=== PATIENT | female | born 1995 | race Caucasian/White ===

== ENCOUNTER 2016-12-06 14:58 | Emergency (ER) | payer MEDICAID ==
[2016-12-06 15:09] VITALS: BP 124/97
--- NOTE | 2016-12-06 15:17 | EDM.PDOC ---
ED HPI GENERAL MEDICAL PROBLEM - General Chief Complaint: ENT Problem Stated Complaint: TEETH Time Seen by Provider: 12/06/16 15:05 Source of Information: Reports: Patient, RN, RN Notes Reviewed History Limitations: Reports: No Limitations - History of Present Illness INITIAL COMMENTS - FREE TEXT/NARRATIVE: Patient presents to the ED at [facility] complaining of dental pain that started a couple weeks ago. Patient states she was seen at [facility] in [place] two weeks ago and diagnosed tooth root decay. Patient states she was placed on antibiotics and sent home. She states she is currently still taking the antibiotics. She states she did not go back to the dentist to have her teeth taken care of. Patient complains of lower right tooth pain and upper left lateral tooth pain. Onset: Gradual - Related Data Allergies Allergy/AdvReac Type Severity Reaction Status Date / Time No Known Allergies Allergy Verified 12/06/16 15:11 Home Meds: Home Meds . [No Known Home Meds] 12/06/16 [History] Past Medical History - Past Health History Medical/Surgical History: Denies Medical/Surgical History Social & Family History - Family History Family Medical History: Noncontributory - Tobacco Use Smoking Status *Q: Former Smoker Years of Tobacco use: 4 Packs/Tins Daily: 0.2 Used Tobacco, but Quit: No Month Tobacco Last Used: Jul - Recreational Drug Use Recreational Drug Use: No ED ROS GENERAL - Review of Systems Review Of Systems: See Below Constitutional: Denies: Fever, Chills, Weakness HEENT: Reports: Dental Pain Respiratory: Denies: Shortness of Breath, Cough Cardiovascular: Denies: Chest Pain, Palpitations Skin: Reports: No Symptoms Neurological: Reports: No Symptoms ED EXAM, GENERAL - Physical Exam Exam: See Below Exam Limited By: No Limitations General Appearance: Alert, No Apparent Distress Throat/Mouth: Normal Gums, Other (Tooth #5 and #32 show obvious decay; no evidence of dental abscess; moderate gingivitis) Respiratory/Chest: No Respiratory Distress, Lungs Clear, Normal Breath Sounds Cardiovascular: Regular Rate, Rhythm Neurological: Alert, Oriented Skin Exam: Warm, Dry, Intact, Normal Color, No Rash ED GENERAL MEDICAL PROCEDURES - Additional/Other Procedure(s) Other (Free Text) Procedure(s): Dental block perform on tooth #32 and #5. Areas injected with 3cc 1% Lidocaine with 2cc 0.5% Marcaine. Patient tolerated procedure well. No complications. Course - Vital Signs Last Recorded V/S: Last Vital Signs Temp 36.6 C 12/06/16 15:05 Pulse 96 12/06/16 15:05 Resp 18 12/06/16 15:05 BP 124/97 H 12/06/16 15:05 Pulse Ox 99 12/06/16 15:05 - Orders/Labs/Meds Orders: Active Orders 24 hr Category Date Time Status Bupivacaine 0.5% [Marcaine 0.5%] Med 12/06/16 15:21 Active 30 ml INJECT ASDIRECTED PRN Medication Orders Bupivacaine HCl (Marcaine 0.5%) 30 ml INJECT ASDIRECTED PRN PRN Reason: Other Meds: Medications Generic Name Dose Route Start Last Admin Trade Name Freq PRN Reason Stop Dose Admin Bupivacaine HCl 30 ml 12/06/16 15:21 Marcaine 0.5% INJECT ASDIRECTED PRN Other Discontinued Medications Generic Name Dose Route Start Last Admin Trade Name Freq PRN Reason Stop Dose Admin Lidocaine HCl 30 ml 12/06/16 15:21 Xylocaine-Mpf 1% INJECT 12/06/16 15:22 ONETIME ONE Departure - Departure Time of Disposition: 15:55 Disposition: Home, Self-Care 01 Condition: Good Clinical Impression: Pain, dental, Dental caries - Discharge Information Referrals: Radha Eubanks TRAFFIC RATE ANALYST [Primary Care Provider] - Forms: ED Department Discharge Additional Instructions: 1. Stay well hydrated and rest 2. Use oral antiseptic mouth 3. Warm salt water gargles 4. See your primary or walk in clinic if pain persist 5. Make appointment to see your dentist for complete therapy - Problem List Review Problem List Initiated/Reviewed/Updated: Yes - My Orders Last 24 Hours: My Active Orders 12/06/16 15:21 Bupivacaine 0.5% [Marcaine 0.5%] 30 ml INJECT ASDIRECTED PRN - Assessment/Plan Last 24 Hours: My Active Orders 12/06/16 15:21 Bupivacaine 0.5% [Marcaine 0.5%] 30 ml INJECT ASDIRECTED PRN Plan: Attempted to call [facility], no answer.
[2016-12-06] MEDS ORDERED: Lidocaine 1% 30 ML SDV INJECT ONE (15:21)
[2016-12-06] MEDS ORDERED: Bupivacaine 0.5% 30 ML SDV INJECT PRN (15:21)
== END 2016-12-06 16:03 | disposition home or self-care (01) ==
LOC: VM.ED 14:58
DX: K02.9 Dental caries, unspecified (principal); Z87.891 Personal history of nicotine dependence
CPT/HCPCS: 64400; 99282; 99282-GF-25

== ENCOUNTER 2016-12-07 06:54 | Emergency (ER) | payer MEDICAID ==
[2016-12-07 06:57] VITALS: BP 110/73
[2016-12-07] MEDS ORDERED: Ketorolac 30 MG/ML SDV IM ONE (07:22)
[2016-12-07] MEDS ORDERED: Bupivacaine 0.25% 30 ML SDV INJECT PRN (07:22)
--- NOTE | 2016-12-07 07:28 | EDM.PDOC ---
ED HPI GENERAL MEDICAL PROBLEM - General Chief Complaint: ENT Problem Stated Complaint: dental pain Time Seen by Provider: 12/07/16 07:08 Source of Information: Reports: Patient History Limitations: Reports: No Limitations - History of Present Illness INITIAL COMMENTS - FREE TEXT/NARRATIVE: Patient presents to the ED this morning with complaints of right sided upper and lower tooth pain. She was seen yesterday here and given a digital block which she claims did not work. She was also given a prescription for tylenol with codeine by her primary provider. She has no additional complaints. States she took 2 codeine tablets this AM. She told the RN that she had taken 3. Rates pain a 10/10 but is half sleeping and slurring her words during my history taking. Seen two weeks ago at [facility] and told to follow up after her antibiotic course. Started on Clindamycin. Onset: Gradual Duration: Constant Quality: Reports: Ache Severity: Severe Improves with: Reports: None Worsens with: Reports: None Associated Symptoms: Reports: No Other Symptoms Treatments DOCK HAND: Reports: Acetaminophen, NSAIDS, Other Medication(s) Right Tooth/Teeth Pain Score (Numeric/FACES): 10 - Related Data Allergies Allergy/AdvReac Type Severity Reaction Status Date / Time No Known Allergies Allergy Verified 12/06/16 15:11 Home Meds: Home Meds . [No Known Home Meds] 12/06/16 [History] Past Medical History - Past Health History Medical/Surgical History: Denies Medical/Surgical History HEENT History: Reports: Other (See Below) Other HEENT History: dental caries Social & Family History - Family History Family Medical History: Noncontributory - Tobacco Use Smoking Status *Q: Former Smoker Years of Tobacco use: 4 Packs/Tins Daily: 0.2 Used Tobacco, but Quit: No Month Tobacco Last Used: Jul - Recreational Drug Use Recreational Drug Use: No ED ROS ENT - Review of Systems Review Of Systems: ROS reveals no pertinent complaints other than HPI. ED EXAM, ENT - Physical Exam Exam: See Below Exam Limited By: No Limitations General Appearance: WD/WN, No Apparent Distress, Lethargic Eye Exam: Bilateral Eye: EOMI, PERRL Mouth/Throat: Dental Pain, Other (dental caries) Head: Atraumatic, Normocephalic Neurological: Oriented, CN II-XII Intact, Normal Cognition, Slow to Respond Psychiatric: Normal Mood, Flat Affect Skin: Warm, Dry, Intact Lymphatic: No Adenopathy Course - Vital Signs Last Recorded V/S: Last Vital Signs Temp 35.9 C 12/07/16 06:54 Pulse 70 12/07/16 06:54 Resp 18 12/07/16 06:54 BP 110/73 12/07/16 06:54 Pulse Ox 99 12/07/16 06:54 - Orders/Labs/Meds Orders: Active Orders 24 hr Category Date Time Status Bupivacaine 0.25% [Marcaine 0.25%] Med 12/07/16 07:22 Ordered 30 ml INJECT ASDIRECTED PRN Ketorolac [Toradol] Med 12/07/16 07:22 Once 30 mg IM ONETIME ONE - Re-Assessments/Exams Free Text/Narrative Re-Assessment/Exam: 12/07/16 07:30 Patient given 30 IM toradol, digital block to posterior nerve bundle in the right lower and upper jaw, as well as buccal injection near identified pain sites of her teeth. Bupivicaine and Lidocaine. Departure - Departure Time of Disposition: 07:49 Disposition: Home, Self-Care 01 Condition: Fair Clinical Impression: Dental caries - Discharge Information Instructions: Dental Care and Dentist Visits, Dental Caries, [id number] Forms: ED Department Discharge Additional Instructions: As already instructed by Sanjay Mishra yesterday. 1. Follow up with your primary provider for chronic pain management of your dental pain. 2. Follow up with dental bridge for completion of your plan of care for your teeth 3. Continue the clindamycin. 4. Stay hydrated. 5. Take aleve or ibuprofen as well as the tylenol with codeine for pain control. You may also take tylenol, but do not exceed 4,000 mg daily as the codeine medication also has tylenol in it. 6. Use salt water gargles, as well as oral antiseptic rinse. - Problem List & Annotations (1) Dental caries SNOMED Code(s): 36905475 Code(s): K02.9 - DENTAL CARIES, UNSPECIFIED Status: Acute - Problem List Review Problem List Initiated/Reviewed/Updated: Yes - My Orders Last 24 Hours: My Active Orders 12/07/16 07:22 Bupivacaine 0.25% [Marcaine 0.25%] 30 ml INJECT ASDIRECTED PRN Ketorolac [Toradol] 30 mg IM ONETIME ONE - Assessment/Plan Last 24 Hours: My Active Orders 12/07/16 07:22 Bupivacaine 0.25% [Marcaine 0.25%] 30 ml INJECT ASDIRECTED PRN Ketorolac [Toradol] 30 mg IM ONETIME ONE Assessment:: dental caries, tooth decay Plan: As already instructed by Sanjay Mishra yesterday. 1. Follow up with your primary provider for chronic pain management of your dental pain. 2. Follow up with dental bridge for completion of your plan of care for your teeth 3. Continue the clindamycin. 4. Stay hydrated. 5. Take aleve or ibuprofen as well as the tylenol with codeine for pain control. You may also take tylenol, but do not exceed 4,000 mg daily as the codeine medication also has tylenol in it. 6. Use salt water gargles, as well as oral antiseptic rinse.
== END 2016-12-07 07:50 | disposition home or self-care (01) ==
LOC: VM.ED 06:54
DX: K02.9 Dental caries, unspecified (principal); Z87.891 Personal history of nicotine dependence
CPT/HCPCS: 64400; 96372; 99282; 99283; J1885; J3490

== ENCOUNTER 2017-03-08 11:26 | Emergency (ER) | payer MEDICAID ==
[2017-03-08] MEDS ORDERED: Tetracaine 1% 10 MG/ML 2 ML SDV ONE (11:34)
[2017-03-08] MEDS ORDERED: Tetracaine HCl/PF 0.5% 4 ML Bottle EYEBOTH ONE (11:36)
[2017-03-08 11:37] VITALS: BP 125/67
[2017-03-08] MEDS ORDERED: Fluorescein 1 MG Ophth Strip EYEBOTH ONE (11:44)
--- NOTE | 2017-03-08 12:02 | EDM.PDOC ---
ED HPI GENERAL MEDICAL PROBLEM - General Chief Complaint: Eye Problems Stated Complaint: CONTACTS STUCK IN EYES Time Seen by Provider: 03/08/17 11:33 Source of Information: Reports: Patient, RN, RN Notes Reviewed History Limitations: Reports: No Limitations - History of Present Illness INITIAL COMMENTS - FREE TEXT/NARRATIVE: Patient presents to the ED at [facility] stating her contact lenses are stuck in each eye and she is not able to manually removed them. Onset: Today Bilateral Eye Pain Score (Numeric/FACES): 7 - Related Data Allergies Allergy/AdvReac Type Severity Reaction Status Date / Time No Known Allergies Allergy Verified 03/08/17 11:37 Home Meds: Home Meds Tobramycin/Dexamethasone [Tobradex Eye Drops] 3 drop EYEBOTH TID 7 Days #1 bottle 03/08/17 [Rx] Past Medical History - Past Health History Medical/Surgical History: Denies Medical/Surgical History HEENT History: Reports: Other (See Below) Other HEENT History: dental caries Social & Family History - Family History Family Medical History: Noncontributory - Tobacco Use Smoking Status *Q: Former Smoker Years of Tobacco use: 4 Packs/Tins Daily: 0.2 Used Tobacco, but Quit: No Month Tobacco Last Used: Jul - Recreational Drug Use Recreational Drug Use: No ED ROS GENERAL - Review of Systems Review Of Systems: See Below Constitutional: Denies: Fever, Chills, Weakness HEENT: Reports: Contact Lenses (stuck in both eyes) Respiratory: Denies: Shortness of Breath, Cough Cardiovascular: Denies: Chest Pain, Palpitations Skin: Reports: No Symptoms Neurological: Reports: No Symptoms ED EXAM GENERAL W FULL EYE - Physical Exam Exam: See Below Exam Limited By: No Limitations General Appearance: Alert, No Apparent Distress Eye Exam: Bilateral Eye: EOMI, Normal Inspection, PERRL Eyelids: Bilateral: Erythema, Lid Everted for Exam (unable to visualize any FB) Conjunctiva & Sclera: Bilateral: Injected Cornea Exam: Bilateral: Examined with Flourescein (no FB seen) Extraocular Movements: Bilateral: Intact Pupils: Normal Accommodation Pupillary Size: Bilateral: 4 mm Pupillary Reaction: Bilateral: Brisk Respiratory/Chest: No Respiratory Distress, Lungs Clear, Normal Breath Sounds Cardiovascular: Normal Peripheral Pulses, Regular Rate, Rhythm Neurological: Alert, Oriented Skin Exam: Warm, Dry, Intact, Normal Color, No Rash ED EYE w/ Add Procedure - Eye Procedure Alcaine Drops Administered: Yes Eye FB Removal: Other (no FB found) Progress: Eyes numbed with Tetracaine drops; Stained used, no contact lenses or FB found in either eye Course - Vital Signs Last Recorded V/S: Last Vital Signs Temp 36.8 C 03/08/17 11:33 Pulse 119 H 03/08/17 11:33 Resp 16 03/08/17 11:33 BP 125/67 03/08/17 11:33 Pulse Ox 98 03/08/17 11:33 - Orders/Labs/Meds Meds: Medications Discontinued Medications Generic Name Dose Route Start Last Admin Trade Name Freq PRN Reason Stop Dose Admin Fluorescein Sodium 1 mg 03/08/17 11:44 03/08/17 11:47 Ful-Leila EYEBOTH 03/08/17 11:45 1 mg ONETIME ONE Administration Tetracaine 1 mg 03/08/17 11:34 03/08/17 11:45 Pontocaine 1% .XX 03/08/17 11:35 Not Given ONETIME ONE Tetracaine HCl 1 ml 03/08/17 11:36 03/08/17 11:40 Tetracaine 0.5% Steri-Unit Sanaz EYEBOTH 03/08/17 11:37 2 drop ONETIME ONE Administration Departure - Departure Time of Disposition: 12:00 Disposition: Home, Self-Care 01 Condition: Good Clinical Impression: Irritation of both eyes - Discharge Information Prescriptions: Tobramycin/Dexamethasone [Tobradex Eye Drops] 3 drop EYEBOTH TID 7 Days #1 bottle Additional Instructions: 1. Stay well hydrated and rest 2. Use eye drops as directed 3. See eye doctor this Friday if symptoms are not improving - Problem List Review Problem List Initiated/Reviewed/Updated: Yes
== END 2017-03-08 12:10 | disposition home or self-care (01) ==
LOC: VM.ED 11:26
DX: H57.9 Unspecified disorder of eye and adnexa (principal); Z87.891 Personal history of nicotine dependence
CPT/HCPCS: 99283; A9270

== ENCOUNTER 2019-08-09 14:27 | Emergency (ER) | payer BC, MEDICAID ==
[2019-08-09] MEDS: LORazepam 2 MG/ML SDV IM ONE (14:47)
[2019-08-09] MEDS: methylPREDNISolone Sodium Succinate 125 MG/2 ML SDV IM ONE (14:48)
--- NOTE | 2019-08-09 15:27 | EDM.PDOC ---
ED HPI GENERAL MEDICAL PROBLEM - General Stated Complaint: ALLERGIC REACTION Time Seen by Provider: 08/09/19 14:27 Source of Information: Reports: Patient History Limitations: Reports: No Limitations - History of Present Illness INITIAL COMMENTS - FREE TEXT/NARRATIVE: Pt. presents to ER with complaints of a possible allergic reaction. She states that after eating sardines, she began experiencing tingling to her mouth and itching to her chest/extremities. Pt. states that she also began experiencing some breathing trouble and feels this may be due to a "panic attack". She took 50mg of benadryl prior to coming to ER. She states that the sensations in her mouth have improved but states she feels extremely anxious. She complains of numbness/tightness in her hands and feet. Denies any nausea or vomiting. No chest pain. No significant rash. Onset: Today Onset Date: 08/09/19 Location: Reports: Face, Upper Extremity, Left, Upper Extremity, Right, Lower Extremity, Left, Lower Extremity, Right, Generalized Quality: Reports: Burning Severity: Moderate - Related Data Allergies Allergy/AdvReac Type Severity Reaction Status Date / Time No Known Allergies Allergy Verified 03/08/17 11:37 Home Meds: Home Meds traMADol [Ultram] 50 mg PO Q6H PRN #10 tablet 04/08/17 [Rx] Past Medical History - Past Health History Medical/Surgical History: Denies Medical/Surgical History HEENT History: Reports: Impaired Vision, Other (See Below) Other HEENT History: dental caries Respiratory History: Reports: Asthma 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 Musculoskeletal History: Reports: Fracture Neurological History: Reports: Migraines Psychiatric History: Reports: Anxiety, Depression - Past Surgical History HEENT Surgical History: Reports: Tonsillectomy Social & Family History - Family History Family Medical History: Noncontributory - Caffeine Use Caffeine Use: Reports: Coffee, Energy Drinks, Soda, Tea ED ROS GENERAL - Review of Systems Review Of Systems: See Below Constitutional: Denies: Fever, Chills, Malaise, Weakness, Fatigue, Diaphoresis, Decreased Appetite, Weight Gain HEENT: Reports: No Symptoms Respiratory: Reports: Shortness of Breath. Denies: Wheezing, Pleuritic Chest Pain, Cough, Sputum, Hemoptysis Cardiovascular: Reports: No Symptoms Endocrine: Reports: No Symptoms GI/Abdominal: Reports: No Symptoms. Denies: Abdominal Pain, Constipation, Diarrhea, Difficulty Swallowing, Nausea, Vomiting : Reports: No Symptoms Musculoskeletal: Reports: No Symptoms Skin: Reports: Pruritis Neurological: Reports: No Symptoms Psychiatric: Reports: No Symptoms Hematologic/Lymphatic: Reports: No Symptoms Immunologic: Reports: No Symptoms ED EXAM, GENERAL - Physical Exam Exam: See Below Exam Limited By: No Limitations General Appearance: Alert, WD/WN, No Apparent Distress Eye Exam: Bilateral Eye: EOMI, Normal Fundi, Normal Inspection, PERRL Nose: Normal Inspection, Normal Mucosa, No Blood Throat/Mouth: Normal Inspection, Normal Lips, Normal Teeth, Normal Gums, Normal Oropharynx, Normal Voice, No Airway Compromise Head: Atraumatic, Normocephalic Neck: Normal Inspection, Supple, Non-Tender, Full Range of Motion Respiratory/Chest: No Respiratory Distress, Lungs Clear, Normal Breath Sounds Cardiovascular: Normal Peripheral Pulses, Regular Rate, Rhythm, No Edema, No Gallop, No JVD, No Murmur, No Rub Peripheral Pulses: 4+: Radial (L) GI/Abdominal: Soft, Non-Tender, No Distention, No Mass (Female) Exam: Deferred Rectal (Female) Exam: Deferred Back Exam: Normal Inspection, Full Range of Motion Extremities: Normal Inspection, Normal Range of Motion, Non-Tender, No Pedal Edema, Normal Capillary Refill Neurological: Alert, Oriented, CN II-XII Intact, Normal Cognition, Normal Gait, No Motor/Sensory Deficits Psychiatric: Anxious, Tearful Skin Exam: Warm, Dry, Intact, No Rash, Other (no significant rash. A few small raised areas to extremities. No wheals or urticaria.) Lymphatic: No Adenopathy Course - Orders/Labs/Meds Meds: Medications Discontinued Medications Generic Name Dose Route Start Last Admin Trade Name Freq PRN Reason Stop Dose Admin Lorazepam 2 mg 08/09/19 14:38 08/09/19 14:47 Ativan IM 08/09/19 14:39 2 mg ONETIME ONE Administration Methylprednisolone Sodium Succinate 125 mg 08/09/19 14:39 08/09/19 14:48 Solu-Medrol IM 08/09/19 14:40 125 mg ONETIME ONE Administration Departure - Departure Time of Disposition: 15:33 Disposition: Home, Self-Care 01 Clinical Impression: Allergic reaction, Panic attack - Discharge Information Instructions: Panic Attack, [id number], Food Allergy, Lorazepam tablets Referrals: Ludmila Arredondo NP [Primary Care Provider] - Additional Instructions: Ativan 0.5mg 1 every 6 hours as needed for anxiety Continue with benadryl 50mg every 4-6 hours for itching Recheck in clinic in 7-10 days Return to ER if you have increased shortness of breath, throat tightness, etc. - Assessment/Plan Plan: Pt. feels that she did have a mild allergic reaction. Based on her history, this caused a panic attack, hyperventilation and carpal pedal spasms. Pt. was feeling better at time of discharge. She was started on a short course of ativan. She was given solu medrol in ER. Will hold off from starting oral prednisone-her symptoms are mild and the prednisone can cause worsening anxiety/ agitation. Recheck in clinic in 7-10 days.
[2019-08-09 16:29] VITALS: BP 148/82; PULSE 115
== END 2019-08-09 15:25 | disposition home or self-care (01) ==
LOC: VM.ED 14:27
DX: T78.1XXA Other adverse food reactions, not elsewhere classified, initial encounter (principal); R20.2 Paresthesia of skin; F41.0 Panic disorder [episodic paroxysmal anxiety]
CPT/HCPCS: 96372; 99283; J2060; J2930

== ENCOUNTER 2019-08-15 14:41 | Emergency (ER) | payer MEDICAID ==
[2019-08-15 15:20] VITALS: BP 148/96; PULSE 88
--- NOTE | 2019-08-15 15:23 | EDM.PDOC ---
ED HPI GENERAL MEDICAL PROBLEM - General Chief Complaint: Skin Complaint Stated Complaint: ALLERGIC REACTION Time Seen by Provider: 08/15/19 15:10 Source of Information: Reports: Patient History Limitations: Reports: No Limitations - History of Present Illness INITIAL COMMENTS - FREE TEXT/NARRATIVE: Patient presents to the ER with concerns of hives/swelling to her ankles and hands. Took 2 Benadryl at home about an hour ago. States felt like her throat was "closing off". No wheezing or shortness of breath. Does admit that when this occurs, she gets very anxious. She was seen on the here in ER by Ramiro Gutierrez due to same type of complaint but had a panic attack as a result. Was given ATivan and told to take Benadryl. Thought that concern was caused by Sardines. On presentation that time, no rash or hives were apparent. Does complain of a mild sore throat. No ear pain, no sinus congestion. Unaware of any fevers. Onset: Today, Sudden Duration: Minutes:, Constant Location: Reports: Generalized Severity: Mild Associated Symptoms: Denies: Confusion, Chest Pain, Cough, Fever/Chills, Loss of Appetite, Nausea/Vomiting, Shortness of Breath, Weakness Throat Pain Score (Numeric/FACES): 3 - Related Data Allergies Allergy/AdvReac Type Severity Reaction Status Date / Time No Known Allergies Allergy Verified 08/15/19 15:13 Home Meds: Home Meds . 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 Denies: Ear Pain, Sinus Problem Respiratory: Denies: Shortness of Breath, Wheezing Cardiovascular: Denies: Chest Pain, Edema, Lightheadedness Endocrine: Denies: Fatigue GI/Abdominal: Denies: Abdominal Pain, Nausea, Vomiting : Reports: No Symptoms Musculoskeletal: Reports: No Symptoms Skin: Reports: Urticaria Psychiatric: Reports: Anxiety ED EXAM GENERAL NO PERIP PULSE - Physical Exam Exam: See Below Exam Limited By: No Limitations General Appearance: Alert, WD/WN, No Apparent Distress Ears: Normal External Exam, Normal TMs Nose: Normal Inspection, Normal Mucosa, No Blood Throat/Mouth: Normal Inspection, Other (erythema to posterior pharynx, no swelling noted) Head: Normocephalic Neck: Normal Inspection, Supple, Non-Tender Respiratory/Chest: No Respiratory Distress, Lungs Clear, Normal Breath Sounds Cardiovascular: Regular Rate, Rhythm GI/Abdominal: Normal Bowel Sounds, Soft, Non-Tender Extremities: Normal Inspection, No Pedal Edema Neurological: Alert, Oriented Skin Exam: Warm, Dry, Other (no rash, hives noted. Does have dry scabs noted throughout.) Course - Vital Signs Last Recorded V/S: Last Vital Signs Temp 99.9 F 08/15/19 14:50 Pulse 88 08/15/19 14:50 Resp 16 08/15/19 14:50 BP 148/96 H 08/15/19 14:50 Pulse Ox 99 08/15/19 14:50 - Orders/Labs/Meds Orders: Active Orders 24 hr Category Date Time Status CULTURE STREP A CONFIRMATION [RM] Stat Lab 08/15/19 15:05 Received Labs: Laboratory Tests 08/15/19 Range/Units 15:05 POC Group A Strep Rpd Negative (NEGATIVE) - Re-Assessments/Exams Free Text/Narrative Re-Assessment/Exam: 08/15/19 15:44 strep screen negative Departure - Departure Time of Disposition: 15:44 Disposition: Home, Self-Care 01 Condition: Good Clinical Impression: Sore throat (viral) - Discharge Information *PRESCRIPTION DRUG MONITORING PROGRAM REVIEWED*: No *COPY OF PRESCRIPTION DRUG MONITORING REPORT IN PATIENT EDMUND: No Referrals: Ludmila Arredondo NP [Primary Care Provider] - Forms: ED Department Discharge Additional Instructions: 1. Push fluids 2. Rest 3. Alternate tylenol with ibuprofen for any discomfort 4. Benadryl 50 every 6 hours as needed for itching/hives 5. Call Ludmila's office in the morning for appointment to discuss recurring hives Sepsis Event Note - Focused Exam Vital Signs: Vital Signs Temp Pulse Resp BP Pulse Ox 08/15/19 14:50 99.9 F 88 16 148/96 H 99 Date Exam was Performed: 08/15/19 Time Exam was Performed: 15:44 - My Orders Last 24 Hours: My Active Orders 08/15/19 15:05 CULTURE STREP A CONFIRMATION [RM] Stat - Assessment/Plan Last 24 Hours: My Active Orders 08/15/19 15:05 CULTURE STREP A CONFIRMATION [RM] Stat
== END 2019-08-15 16:07 | disposition home or self-care (01) ==
LOC: VM.ED 14:41
DX: J02.8 Acute pharyngitis due to other specified organisms (principal); B97.89 Other viral agents as the cause of diseases classified elsewhere
CPT/HCPCS: 87081; 87880-QW; 99283

== ENCOUNTER 2019-08-17 04:02 | Emergency (ER) | payer MEDICAID ==
[2019-08-17] MEDS ORDERED: Ketorolac 30 MG/ML SDV IM ONE (04:28)
--- NOTE | 2019-08-17 04:36 | EDM.PDOC ---
ED HPI GENERAL MEDICAL PROBLEM - General Chief Complaint: ENT Problem Stated Complaint: Sore Throat Time Seen by Provider: 08/17/19 04:22 Source of Information: Reports: Patient History Limitations: Reports: No Limitations - History of Present Illness INITIAL COMMENTS - FREE TEXT/NARRATIVE: Pt. presents to ER with complaints of continued concerns of allergic reaction. She was seen in ER on 08/09 and 08/15 with sore throat, concerns that her "throat was closing off, and "hives' to her upper and lower extremities. Initially she states that the symptoms started abruptly after eating sardines. She was not experiencing any stridor, hives on wheezing but was experiencing carpal pedal spasms secondary to hyperventilation on arrival. She was given benadryl and was also given a dose of ativan which helped with the symptoms. She was seen in the ER again by Sabrina Rush PA-C on 08/15. At that time, she was having continued throat tightness/pharyngitis. Strep screen was negative. She was advised to follow-up in clinic, as the patient was not experiencing what appeared to be an acute allergic reaction. Pt. presents to ER this morning with worsening throat tightness, pharyngitis, widespread pruritus to extremities and torso. She states that it is worse since approx. 7 PM tonight. She states that she is experiencing hives to her hands. Denies any chest pain or shortness of breath. She complains of nausea, but no vomiting. Denies any fever or chills. Pt. states that she has never been diagnosed with food allergies and has never seen an kiln furniture caster. Onset: Today Location: Reports: Neck, Generalized Quality: Reports: Burning - Related Data Allergies Allergy/AdvReac Type Severity Reaction Status Date / Time No Known Allergies Allergy Verified 08/17/19 04:23 Home Meds: Home Meds . 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 Musculoskeletal History: Reports: Fracture Neurological History: Reports: Migraines Psychiatric History: Reports: Anxiety, Depression - Past Surgical History HEENT Surgical History: Reports: Tonsillectomy Social & Family History - Family History Family Medical History: Noncontributory - Caffeine Use Caffeine Use: Reports: Coffee, Energy Drinks, Soda, Tea ED ROS GENERAL - Review of Systems Review Of Systems: See Below Constitutional: Reports: No Symptoms HEENT: Reports: Throat Pain, Throat Swelling Respiratory: Reports: No Symptoms Cardiovascular: Reports: No Symptoms Endocrine: Reports: No Symptoms GI/Abdominal: Reports: Nausea. Denies: Abdominal Pain, Black Stool, Bloody Stool, Vomiting : Reports: No Symptoms Musculoskeletal: Reports: No Symptoms Skin: Reports: Pruritis, Other (Feels like she has hives but doesn't currently have any urticaria.) Neurological: Reports: No Symptoms Psychiatric: Reports: No Symptoms Hematologic/Lymphatic: Reports: No Symptoms Immunologic: Reports: Food Allergy ED EXAM, GENERAL - Physical Exam Exam: See Below Exam Limited By: No Limitations General Appearance: Alert, WD/WN, No Apparent Distress Eye Exam: Bilateral Eye: EOMI, Normal Fundi, Normal Inspection, PERRL Nose: Normal Inspection, Normal Mucosa, No Blood Throat/Mouth: Normal Inspection, Normal Lips, Normal Oropharynx, Normal Voice, No Airway Compromise Head: Atraumatic, Normocephalic Neck: Normal Inspection, Supple, Non-Tender, Full Range of Motion, Other ( anterior and posterior cervical tenderness but no active swelling to the area.) Respiratory/Chest: No Respiratory Distress, Lungs Clear, Normal Breath Sounds, No Accessory Muscle Use, Chest Non-Tender Cardiovascular: Normal Peripheral Pulses, Regular Rate, Rhythm, No Edema, No Gallop, No JVD, No Murmur, No Rub Peripheral Pulses: 4+: Radial (R) GI/Abdominal: Normal Bowel Sounds, Soft, Non-Tender, No Organomegaly, No Distention, No Abnormal Bruit, No Mass, Pelvis Stable (Female) Exam: Deferred Rectal (Female) Exam: Deferred Back Exam: Normal Inspection, Full Range of Motion Extremities: Normal Inspection, Normal Range of Motion, Non-Tender, No Pedal Edema, Normal Capillary Refill Neurological: Alert, Oriented, CN II-XII Intact, Normal Cognition, Normal Gait, Normal Reflexes, No Motor/Sensory Deficits Psychiatric: Normal Affect, Anxious Skin Exam: Warm, Dry, Intact, Pallor Lymphatic: No Adenopathy Course - Orders/Labs/Meds Meds: Medications Discontinued Medications Generic Name Dose Route Start Last Admin Trade Name Ellen PRN Reason Stop Dose Admin Ketorolac Tromethamine 30 mg 08/17/19 04:28 08/17/19 04:31 Toradol IM 08/17/19 04:29 30 mg ONETIME ONE Administration Departure - Departure Time of Disposition: 04:50 Disposition: Home, Self-Care 01 Clinical Impression: Pharyngitis - Discharge Information Instructions: Pharyngitis, [id number] Referrals: Ludmila Arredondo WARD SUPERVISOR [Primary Care Provider] - Forms: ED Department Discharge Additional Instructions: Ibuprofen 200mg 3 tabs every 6 hours as needed for continued discomfort, starting at 10 AM tomorrow since you were given an injection today. Please follow-up in clinic tomorrow for lab work. It doesn't appear that you are having a severe allergic reaction at this point, but you can take benadryl as needed for itching. Sepsis Event Note - Focused Exam Date Exam was Performed: 08/17/19 Time Exam was Performed: 04:37 - Problem List Review Problem List Initiated/Reviewed/Updated: Yes - Assessment/Plan Plan: Pt. refused any blood draws tonight, stating that she is scared of needles. She requests something for the pharyngitis/neck discomfort. Pt. was given toradol 30mg IM. She was strongly advised to follow-up in clinic tomorrow for further workup. She states that she needs her significant other with her for support for any bloodwork due to severe phobia of needles. Advised to return to ER if she has any shortness of breath, chest pain, or if she decides she want labs done. There was no urticaria, but she can use benadryl for itching as needed. All questions were answered.
[2019-08-17 04:44] VITALS: BP 136/95; PULSE 96
== END 2019-08-17 04:40 | disposition home or self-care (01) ==
LOC: VM.ED 04:02
DX: J02.9 Acute pharyngitis, unspecified (principal)
CPT/HCPCS: 96372; 99282; J1885

== ENCOUNTER 2019-08-17 17:21 | Emergency (ER) | payer MEDICAID ==
[2019-08-17 17:39] VITALS: BP 157/93; PULSE 102
--- NOTE | 2019-08-17 18:04 | EDM.PDOC ---
ED HPI GENERAL MEDICAL PROBLEM - General Chief Complaint: Allergic Reaction Time Seen by Provider: 08/17/19 17:35 Source of Information: Reports: Patient - History of Present Illness INITIAL COMMENTS - FREE TEXT/NARRATIVE: Pt. presents to ER with complaints of allergic reaction. She was in the ER last night with the same complaint, and has been in the ER a total of 4 times in the past week with similar symptoms. Pt. last night refused any blood draw, stating that she was afraid of needles and wanting someone to be with her for the blood draw. Pt. stated that she had an appointment today at the clinic, but she states that it is for tomorrow. When asked why she didn't try to change the appointment to today, she stated because she was tired. When she was seen last night, she stated that she wanted something for her throat discomfort. Pt. did allow us to give her an injection of toradol for discomfort. It did not appear that she was having any sort of allergic reaction. Pt. presenting complaint today is that of itching skin, perceived presence of urticaria, throat tightness, difficulty breathing, and numbness in the extremities. She denies any fever or chills. She complains of generalized discomfort and states that she feels anxious. Denies any ear pain or fullness. She does complain of mild nausea. She denies any drug use. Denies any diarrhea. Again, she has refused any workup including lab studies at this point. 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 Neck Pain Score (Numeric/FACES): 8 Right Elbow Pain Score (Numeric/FACES): 8 - Related Data Allergies Allergy/AdvReac Type Severity Reaction Status Date / Time No Known Allergies Allergy Verified 08/17/19 17:30 Home Meds: Home Meds diphenhydrAMINE [Benadryl] 25 mg PO Q6H PRN 08/17/19 [History] Past Medical History - Past Health History Medical/Surgical History: Denies Medical/Surgical History HEENT History: Reports: Impaired Vision, Other (See Below) Other HEENT History: dental caries Respiratory History: Reports: Asthma 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 Denies: Fever, Chills, Malaise, Diaphoresis, Weight Loss HEENT: Reports: Throat Pain, Throat Swelling (sensation of throat swelling) Respiratory: Reports: Shortness of Breath. Denies: Wheezing, Cough Cardiovascular: Reports: No Symptoms Endocrine: Reports: No Symptoms GI/Abdominal: Reports: No Symptoms : Reports: No Symptoms Musculoskeletal: Reports: No Symptoms Skin: Reports: No Symptoms Neurological: Reports: No Symptoms Psychiatric: Reports: No Symptoms Hematologic/Lymphatic: Reports: No Symptoms Immunologic: Reports: No Symptoms ED EXAM GENERAL NO PERIP PULSE - Physical Exam Exam: See Below Exam Limited By: No Limitations General Appearance: Alert, WD/WN, No Apparent Distress Eye Exam: Bilateral Eye: EOMI, Normal Fundi, Normal Inspection, PERRL Ears: Normal External Exam, Normal Canal, Hearing Grossly Normal, Normal TMs Nose: Normal Inspection, Normal Mucosa, No Blood. No: Nasal Tenderness, Nasal Swelling, Nasal Drainage, Nasal Flaring Throat/Mouth: Normal Inspection, Normal Lips, Normal Teeth, Normal Gums, Normal Oropharynx, Normal Voice, No Airway Compromise Head: Atraumatic, Normocephalic Neck: Normal Inspection, Supple, Non-Tender, Full Range of Motion. No: Lymphadenopathy (L), Lymphadenopathy (R) Respiratory/Chest: Lungs Clear, Normal Breath Sounds, No Accessory Muscle Use, Chest Non-Tender. No: Crackles, Rales, Rhonchi, Wheezing, Stridor, Pleural Rub , Retractions Cardiovascular: Normal Peripheral Pulses, Regular Rate, Rhythm, No Edema, No Gallop, No JVD, No Murmur, No Rub GI/Abdominal: Normal Bowel Sounds, Soft, Non-Tender, No Organomegaly, No Distention, No Abnormal Bruit, No Mass, Pelvis Stable (Female) Exam: Deferred Rectal (Female) Exam: Deferred Back Exam: Normal Inspection, Full Range of Motion Extremities: Normal Inspection, Normal Range of Motion, Non-Tender, No Pedal Edema, Normal Capillary Refill Neurological: Alert, Oriented, CN II-XII Intact, Normal Cognition, Normal Gait, Normal Reflexes, Inattentive Psychiatric: Anxious, Tearful Skin Exam: Warm, Dry, Pallor, Other (numerous scabs/lesions to face/torso in various stages of healing/excoriations. Pt. 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.) Course - Vital Signs Last Recorded V/S: Last Vital Signs Temp 36.7 C 08/17/19 17:32 Pulse 102 H 08/17/19 17:32 Resp 22 H 08/17/19 17:32 BP 157/93 H 08/17/19 17:32 Pulse Ox 100 08/17/19 17:32 Departure - Departure Time of Disposition: 17:45 Disposition: Home, Self-Care 01 Clinical Impression: Acute anxiety - Discharge Information Referrals: Ludmila Arredondo FRONT ELEVATOR OPERATOR [Primary Care Provider] - Forms: ED Department Discharge Sepsis Event Note - Evaluation Sepsis Screening Result: No Definite Risk - Focused Exam Vital Signs: Vital Signs Temp Pulse Resp BP Pulse Ox 08/17/19 17:32 36.7 C 102 H 22 H 157/93 H 100 Date Exam was Performed: 08/17/19 Time Exam was Performed: 17:49 - Problem List Review Problem List Initiated/Reviewed/Updated: Yes - Assessment/Plan Plan: Pt. left ER before any workup could be performed. She refused to sign AMA. Advised to return to ER if she wanted to be evaluated and was given an open invitation to return as needed.
== END 2019-08-17 17:44 | disposition home or self-care (01) ==
LOC: VM.ED 17:21
DX: F41.9 Anxiety disorder, unspecified (principal); Z98.890 Other specified postprocedural states
CPT/HCPCS: 99283

== ENCOUNTER 2020-07-08 16:57 | Emergency (ER) | payer MEDICAID ==
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
[2020-07-08] MEDS ORDERED: Acetaminophen/HYDROcodone 325-5 MG Tab PO ONE (17:30)
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
[2020-07-08 18:51] VITALS: BP 132/65; PULSE 102
[2020-07-08] MEDS ORDERED: Ondansetron 4 MG Tab.DIS PO ONE (19:19)
[2020-07-08] MEDS ORDERED: Take Home: traMADol 50 MG, 4 Tab Pack PO ONE (19:41)
[2020-07-08] MEDS ORDERED: Take Home: Cephalexin 500 MG Cap, 4 Cap Pack PO ONE (20:14)
[2020-07-08] MEDS ORDERED: Cephalexin 500 MG Cap PO ONE (20:14)
[2020-07-08] MEDS ORDERED: Take Home: traMADol 50 MG, 4 Tab Pack ONE (20:42)
[2020-07-08] MEDS ORDERED: Cephalexin 500 MG Cap ONE (21:09)
== END 2020-07-08 20:55 | disposition home or self-care (01) ==
LOC: VM.ED 16:57
DX: S80.02XA Contusion of left knee, initial encounter (principal); J45.909 Unspecified asthma, uncomplicated; W22.8XXA Striking against or struck by other objects, initial encounter
CPT/HCPCS: 73562-LT; 81025; 99283; 99283-25; A9270-GY